=== PATIENT | male | born 1955 | race Caucasian/White ===

== ENCOUNTER → 2018-04-27 | Outpatient (CLI) | payer BC, OTHER ==
[~2018-04-27] MED LIST: GLIM4TAB2 PO; LINA5TAB PO; LOSA25TA54 PO; METF10007 PO
--- NOTE | 2018-04-27 11:55 | KCIC ---
EXAM: Lumbar spine MRI without contrast. HISTORY: Pain. TECHNIQUE: Multiplanar, multisequence magnetic resonance imaging of the lumbar spine was performed without contrast. COMPARISON: None. FINDINGS: There is minimal anterolisthesis of L5 on S1, measuring 2 mm. There is no acute or subacute fracture. There is no suspicious osseous lesion. The disc spaces are preserved. The conus terminates at L1. At L1-L2, there is no stenosis. At L2-L3, there is a minimal disc bulge. There is minimal facet arthropathy. There is no stenosis. L3-L4, there is a minimal disc bulge. There is minimal facet arthropathy. There is mild bilateral foraminal stenosis. At L4-5, there is a minimal disc bulge. There is minimal facet arthropathy. There is minimal foraminal stenosis. At L5-S1, there is a minimal disc bulge. There is minimal left mild right foraminal stenosis. IMPRESSION: Minimal degenerative change involving the lumbar spine, described above. There is no acute finding. Electronically signed by: Tiffanie Guadalupe MD (04/27/2018 11:52 AM) [id number]
== END | disposition home or self-care (01) ==
LOC: KCIC MRI 10:40
PROVIDERS: ATTEND Physician Assistant
DX: M47.816 Spondylosis without myelopathy or radiculopathy, lumbar region (principal)
CPT/HCPCS: 72148